=== PATIENT | female | born 1945 | race Caucasian/White ===

== ENCOUNTER 2025-03-23 15:43 | Inpatient (IN) | payer OTHER ==
[~2025-03-23] VITALS: Ht 144.8 cm; Wt 58.8 kg
[~2025-03-23 15:43] MED LIST: ALPR.5 PO; ASPI325 PO; ATEN50 PO; CITA20 PO; Percocet 5-3251 EACH PO
[2025-03-23 16:10] LABS: BASOPHILS ABSOLUTE AUTO 0.06 K/mm3 (0.00-0.23); BASOPHILS PERCENT AUTO 1 % (0-2); EOSINOPHILS PERCENT AUTO 2 % (0-6); Hematocrit 45.4 % (33.0-51.0); Hemoglobin 14.9 g/dL (11.5-16.0); IMMATURE GRAN ABSOLUTE AUTO 0.03 K/mm3 (0.00-0.10); IMMATURE GRAN PERCENT AUTO 0 % (0-1); LYMPHOCYTES ABSOLUTE AUTO 2.47 K/mm3 (0.84-5.20); LYMPHOCYTES PERCENT AUTO 28 % (21-46); MONOCYTES ABSOLUTE AUTO 0.69 K/mm3 (0.16-1.47); MONOCYTES PERCENT AUTO 8 % (4-13); Mean Corpuscular HGB 29.4 pg (26.0-34.0); Mean Corpuscular HGB Conc 32.8 g/dL (31.5-36.5); Mean Corpuscular Volume 90 fL (80-100); Mean Platelet Volume 9.7 fL (9.1-12.4); NEUTROPHILS ABSOLUTE AUTO 5.36 K/mm3 (1.96-9.15); NEUTROPHILS PERCENT AUTO 61 % (41-73); Platelet Count 237 K/mm3 (150-400); RDW Coefficient Variation 13.6 % (11.7-14.2); RDW Standard Deviation 44.4 fL (35.1-46.3); Red Blood Cell Count 5.07 M/mm3 (3.80-5.20); White Blood Cell Count 8.81 K/mm3 (4.00-11.30)
[2025-03-23 16:35] LABS: Albumin, Blood 3.5 g/dL (3.4-5.0); Bilirubin, Total 0.4 mg/dL (0.1-1.0); Bun/Creatinine Ratio 18.1 (12.0-20.0); Creatinine, Blood 1.38 mg/dL (0.40-1.00); Globulin, Blood 3.4 g/dL (2.2-4.0); Potassium, Blood 4.1 mmol/L (3.5-5.5); Total Protein, Blood 6.9 g/dL (6.4-8.2)
[2025-03-23] MEDS ORDERED: Clopidogrel Bisulfate 75 MG Tab PO ONE (17:45)
[2025-03-23] MEDS ORDERED: Nicotine 21 MG PATCH TOP ONE (17:45)
[2025-03-23] MEDS ORDERED: Nicotine 21 MG PATCH TOP SCH (18:25)
[2025-03-23] MEDS ORDERED: ALPRAZolam 0.5 MG Tab PO PRN (18:25)
[2025-03-23] MEDS ORDERED: Magnesium Hydroxide Conc 10 ML UDC PO PRN (18:30)
[2025-03-23] MEDS ORDERED: METO50ER PO (19:56)
[2025-03-23] MEDS ORDERED: ROPINIROLE HCL0.5 MG (19:57)
[2025-03-23] MEDS ORDERED: ATOR10 PO (19:57)
[2025-03-23] MEDS ORDERED: Celexa20 MG PO (19:58)
[2025-03-23 20:44] VITALS: BP 185/95
[2025-03-23] MEDS ORDERED: Atorvastatin 40 MG Tab PO SCH (21:50)
[2025-03-23] MEDS ORDERED: rOPINIRole HCl 0.25 MG Tab PO SCH (21:50)
[2025-03-24 01:20] VITALS: BP 176/85
[2025-03-24 05:31] LABS: Anion Gap 7 mmol/L (3-11); Blood Urea Nitrogen 22 mg/dL (8-24); Bun/Creatinine Ratio 32.5 (12.0-20.0); CHOL/HDL RATIO 2.2; CO2, Blood 27 mmol/L (21-32); Calcium, Blood 8.3 mg/dL (8.5-10.1); Chloride, Blood 107 mmol/L (98-108); Cholesterol 125 mg/dL (50-200); Creatinine, Blood 0.68 mg/dL (0.40-1.00); Glomerular Filtration Rate 89 (60-); Glucose, Blood 90 mg/dL (70-99); HDL Cholesterol 56 mg/dL (>39); LDL/HDL RATIO 0.9; Low Density Lipoprotein Chol 52 mg/dL (0-110); Potassium, Blood 3.9 mmol/L (3.5-5.5); Sodium, Blood 137 mmol/L (136-145); Triglycerides 83 mg/dL (30-160); Very Low Density Lipoprot Chol 16 mg/dL (6-32)
--- NOTE | 2025-03-24 05:37 | NUR ---
SHFIT SUMMARY NOC PT A/O X 4. ADMIT FOR CVA. BP ELEVATED WITH PERMISSIVE HTN PROTOCOL IN PLACE. PT SCORED NIH 4 DUE TO NEEDING EFFORT TO KEEP LIMBS IN POSITION WHEN BEING ASSESSED, AND LH N/T THAT WAS COMING AND GOING, BUT PT HAS NOT HAD C/O OF LH N/T SINCE INITIAL ASSESSMENT. PT ON TELE SINUS RHYTHM IN 60'S. TODAY HEAD MRI, ECHO, AND CAROTID-CEREBRAL DUPLEX ARE SCHEDULED. PT CURRENTLY RESTING WITH BED IN LOWEST POSITION, AND CALL LIGHT WITHIN REACH.
[2025-03-24 05:41] VITALS: BP 153/78
[2025-03-24 07:58] VITALS: BP 188/84
[2025-03-24] MEDS ORDERED: Atorvastatin 40 MG Tab PO SCH (09:00)
[2025-03-24] MEDS ORDERED: Clopidogrel Bisulfate 75 MG Tab PO SCH (09:00)
[2025-03-24] MEDS ORDERED: Aspirin 81 MG Chew PO SCH (09:00)
[2025-03-24] MEDS ORDERED: Metoprolol Succinate 50 MG TABCR PO SCH (09:00)
[2025-03-24] MEDS ORDERED: Citalopram Hydrobromide 20 MG Tab PO SCH (09:00)
[2025-03-24] MEDS ORDERED: HydrALAZINE HCl 20 MG / ML 1ML Vial IV PRN (11:50)
[2025-03-24 11:53] VITALS: BP 135/85
--- NOTE | 2025-03-24 13:23 | NUR ---
OUT OF ROOM NOTE: PATIENT LEFT THE ROOM AT 1300 TO MRI.
[2025-03-24 16:45] VITALS: BP 190/84
--- NOTE | 2025-03-24 16:48 | NUR ---
SHIFT SUMMARY: PATIENT A/OX4, SPEECH CLEAR, STRENGTH ARE EQUAL TO ALL EXTREMITIES. PATIENT REPORTS NUMBNESS AND TINGLING TO L HAND AND L FACE. PER PATIENT "MY L FACE NUMB AND TINGLING WHICH COMES AND GOES." NO FACIAL DROOP NOTED. PATIENT IS HYPERTENSIVE c PERMISSIVE HYPERTENSIVE SBP 220 PER ORDER. PATIENT DENIES CP/PRESSURE, SOB, N/V AND DIZZINESS. PATIENT ON TELE, SR HR IN THE 60'S BPM. PATIENT AMBULATED IN HALLWAY X2 THIS SHIFT. PATIENT INDEPENDENT IN ROOM, GOOD APPETITE, CONTINENT OF BAB. PATIENT HAD MRI, CTA HEAD/NECK AND ECHO DONE TODAY. PATIENT SON (MOLLY) CAME TODAY FOR VISIT, UPDATED c PATIENT MEDICAL CONDITION AND PLAN OF CARE. MOLLY VERBALIZED UNDERSTANDING AND NO FURTHER QUESTIONS. CALL LIGHT IN REACH.
[2025-03-24 19:12] VITALS: BP 144/81
[2025-03-25 00:47] VITALS: BP 166/86
[2025-03-25 05:02] VITALS: BP 162/108
--- NOTE | 2025-03-25 05:09 | NUR ---
SHIFT SUMMARY NOC PT A/O X 4. PLEASANT AND COOPERATIVE WITH CARE. BP SLIGHTLY ELEVATED. PT STILL HAVING INTERMITENT L FACIAL/LH N/T, BUT NOT DEFICITS NOTED DURING NEURO CHECKS. DURING 399 NEURO CHECK NIH 0 NO N/T REPORTED. PT WALKING HALLWAYS INDEPENDENTLY W/O ISSUE. ON TELE SINUS RHYTHM IN 70'S, BUT QTC 0.50 DURING SHIFT ASSESSMENT REVIEW OF RHYTHM STRIP. PT STATES EAGERNESS TO DISCHARGE TODAY IF POSSIBLE. PT CURRENTLY RESTING WITH BED IN LOWEST POSITION, AND CALL LIGHT WITHIN REACH.
[2025-03-25 07:31] VITALS: BP 160/96
--- NOTE | 2025-03-25 09:02 | NUR ---
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
[2025-03-25] MEDS ORDERED: CLOP75 PO (11:51)
--- NOTE | 2025-03-25 12:14 | NUR ---
Pt is being discharged to home, son here to pick her up, went over discharge instructions with both, they verbalized understanding, piv removed intact, new medications faxed to [facility], pt does not have a pcp here as [place], will f/u with urgent care or establish pcp as she is here indef, waiting on Dr. Berger to speak with son about test results, then will walk her out. call light in reach.
--- NOTE | 2025-03-25 13:15 | NUR ---
pt left via ambulation after speaking with Neymar. she has all her belongings.
== END 2025-03-25 13:19 | disposition home or self-care (01) | DRG 65 ==
LOC: ER 15:43 → MEDS 18:23
PROVIDERS: Emergency Medicine; ADMIT Internal Medicine
DX: I63.89 Other cerebral infarction (principal); N17.9 Acute kidney failure, unspecified; R29.702 NIHSS score 2; I10 Essential (primary) hypertension; G25.81 Restless legs syndrome; F41.9 Anxiety disorder, unspecified; E78.5 Hyperlipidemia, unspecified; Z66 Do not resuscitate; F17.210 Nicotine dependence, cigarettes, uncomplicated; R20.0 Anesthesia of skin; I27.20 Pulmonary hypertension, unspecified; R29.700 NIHSS score 0; Z79.899 Other long term (current) drug therapy; Z88.0 Allergy status to penicillin; Z79.82 Long term (current) use of aspirin; Z79.891 Long term (current) use of opiate analgesic
CPT/HCPCS: 36415; 70450; 70496; 70498; 70551; 80048; 80053; 80061; 83721; 83880; 85025; 93005; 93010; 93306; 99285-25; A9270; Q9967